=== PATIENT | female | born 1975 | race African-American/Black ===

== ENCOUNTER 2020-07-26 22:54 | Emergency (ER) | payer OTHER ==
[~2020-07-26] VITALS: Ht 162.6 cm; Wt 118.2 kg
[2020-07-26] MEDS ORDERED: CloNIDine HCL 0.1 MG TABLET PO ONE (23:30)
[2020-07-27] MEDS ORDERED: HydrALAZINE HCL 10 MG TABLET PO ONE (00:45)
[2020-07-27 01:56] VITALS: BP 211/139
== END 2020-07-27 02:01 | disposition home or self-care (01) ==
LOC: EMS 23:08
DX: I10 Essential (primary) hypertension (principal)
CPT/HCPCS: 99285; Z7502; Z7610

== ENCOUNTER 2021-09-09 01:51 | Inpatient (IN) | payer OTHER ==
[~2021-09-09] VITALS: Ht 170.2 cm; Wt 108.7 kg
[2021-09-09] MEDS ORDERED: ONDANSETRON HCL 4 MG/2 ML VIAL IVP ONE (02:15)
[2021-09-09] MEDS ORDERED: SODIUM CHLORIDE 0.9% 1,000 ML IV ONE (02:15)
[2021-09-09 02:47] LABS: BASOPHILS % (AUTO) 1.1 % (0.0-2.0); EOSINOPHILS % (AUTO) 1.5 % (1.0-6.0); HEMATOCRIT 43.7 % (36-46); HEMOGLOBIN 14.8 g/dL (12.0-16.0); LYMPHOCYTES # (AUTO) 2.6 K/uL (1.0-4.8); LYMPHOCYTES % (AUTO) 40.1 % (22.0-44.0); MEAN CORPUSCULAR HEMOGLOBIN 28.1 pg (26.0-34.0); MEAN CORPUSCULAR HGB CONC 33.9 G/dL (31.0-37.0); MEAN CORPUSCULAR VOLUME 83 fL (80-100); MONOCYTES # (AUTO) 0.6 K/uL (0.1-1.0); MONOCYTES % (AUTO) 9.4 % (2.0-9.0); NEUTROPHILS # (AUTO) 3.2 K/uL (1.8-7.7); NEUTROPHILS % (AUTO) 47.9 % (40.0-70.0); PLATELET COUNT (AUTO) 332 K/uL (150-450); RED BLOOD CELL COUNT(AUTO) 5.28 MIL/uL (4.00-5.20); RED CELL DISTRIBUTION WIDTH 13.9 % (11.5-14.5)
[2021-09-09 03:20] LABS: COVID AG,FIA SOURCE NASAL SWAB
[2021-09-09 03:23] LABS: ALANINE AMINOTRANSFERASE 44 U/L (12-78); ALBUMIN 4.3 g/dL (3.4-5.0); ALKALINE PHOSPHATASE 67 U/L (46-116); ANION GAP 13 mmol/L (8-16); ASPARTATE AMINOTRANSFERASE 30 U/L (15-37); BILIRUBIN,TOTAL 0.8 mg/dL (0.1-1.0); CALCIUM, TOTAL 9.7 mg/dL (8.8-10.5); CARBON DIOXIDE 30 mmol/L (22-29); CHLORIDE 93 mmol/L (98-107); CREATININE 1.18 mg/dL (0.60-1.30); GLUCOSE,RANDOM 107 mg/dL (70-110); HCG,QUANTITATIVE < 1 mIU/mL (0-6); LIPASE 84 U/L (73-393); SODIUM SERUM 136 mmol/L (136-145); TOTAL PROTEIN, SERUM 8.8 g/dL (6.4-8.2); UREA NITROGEN, BLOOD 7 mg/dL (7-18)
[2021-09-09 03:25] LABS: GLOMERULAR FILTR. RATE CALC 60 mL/min (>60)
[2021-09-09 03:27] LABS: POTASSIUM 2.5 mmol/L (3.5-5.1)
[2021-09-09] MEDS ORDERED: POTASSIUM CHLORIDE 20 MEQ ER TABLET PO ONE (03:30)
[2021-09-09 03:40] LABS: INFLUENZA TYPE A NEGATIVE FOR TYPE A (NEGATIVE); INFLUENZA TYPE B NEGATIVE FOR TYPE B (NEGATIVE)
[2021-09-09] MEDS: POTASSIUM CHL 10 MEQ/WATER 50 ML IV SCH ×2 (03:46→05:04)
[2021-09-09] MEDS ORDERED: MAGNESIUM SULFATE 2 GM/WATER 50 ML IV ONE (04:00)
[2021-09-09] MEDS ORDERED: ACETAMINOPHEN 325 MG TABLET PO PRN (04:00)
[2021-09-09] MEDS ORDERED: ONDANSETRON HCL 4 MG/2 ML VIAL IVP PRN (04:00)
[2021-09-09] MEDS ORDERED: POTASSIUM CHL 10 MEQ/WATER 50 ML IV PRN (04:00)
[2021-09-09 06:10] VITALS: BP 119/57
[2021-09-09] MEDS ORDERED: METF-446 PO (06:12)
[2021-09-09] MEDS ORDERED: HYDR25TA2 PO (06:13)
[2021-09-09] MEDS ORDERED: LOSA25TA41 PO (06:14)
[2021-09-09 07:52] VITALS: BP 123/76
[2021-09-09] MEDS: HEPARIN SODIUM,PORCINE 5,000 UNITS/ML VIAL SQ SCH ×3 (09:18→23:54)
[2021-09-09 10:26] VITALS: BP 137/87
[2021-09-09] MEDS ORDERED: POTASSIUM CHL 20 MEQ/0.9% NS 1,000 ML IV ONE (12:45)
[2021-09-09] MEDS ORDERED: EMPA25TA3 PO (12:46)
[2021-09-09] MEDS ORDERED: SLOWK8 PO (12:46)
[2021-09-09 12:47] LABS: ANION GAP 10 mmol/L (8-16); CALCIUM, TOTAL 9.4 mg/dL (8.8-10.5); CARBON DIOXIDE 31 mmol/L (22-29); CHLORIDE 97 mmol/L (98-107); CREATININE 1.13 mg/dL (0.60-1.30); GLUCOSE,RANDOM 103 mg/dL (70-110); POTASSIUM 3.2 mmol/L (3.5-5.1); SODIUM SERUM 138 mmol/L (136-145); UREA NITROGEN, BLOOD 7 mg/dL (7-18)
[2021-09-09 12:57] LABS: GLOMERULAR FILTR. RATE CALC > 60 mL/min (>60)
[2021-09-09] MEDS: POTASSIUM CHLORIDE 20 MEQ ER TABLET PO PRN (13:14)
[2021-09-09 15:09] VITALS: BP 127/81
[2021-09-09 20:11] LABS: APPEARANCE,URINE CLEAR (CLEAR); BILIRUBIN,URINE NEGATIVE (NEGATIVE); GLUCOSE, URINE (UA) >=1000 mg/dL (NEGATIVE); KETONES,URINE NEGATIVE (NEGATIVE); LEUKOCYTE ESTERASE ,URINE NEGATIVE (NEGATIVE); NITRATE,URINE NEGATIVE (NEGATIVE); OCCULT BLOOD,URINE NEGATIVE (NEGATIVE); PH,URINE 5.5 (5.0-8.0); PROTEIN,URINE NEGATIVE (NEGATIVE); SPECIFIC GRAVITIY, URINE 1.015 (1.003-1.030); UROBILINOGEN,URINE <=1.0 mg/dL (<=1.0)
[2021-09-09 20:28] VITALS: BP 114/64
[2021-09-09 20:32] LABS: BACTERIA,URINE None Seen /HPF (None Seen); HYALINE CASTS, URINE 0-2 /LPF (None Seen); RBC,URINE 0-2 /HPF (0-2); SQUAMOUS EPITHELIAL CELL,UR Many /LPF (None Seen); WBC,URINE 0-2 /HPF (0-5)
[2021-09-09] MEDS ORDERED: INSULIN LISPRO 100 UNITS/ML SQ PRN (22:45)
[2021-09-09] MEDS ORDERED: DEXTROSE 50%-WATER 25 GM/50 ML SYRINGE IVP PRN (22:45)
[2021-09-09 23:57] VITALS: BP 149/96
[2021-09-10 04:43] VITALS: BP 127/84
[2021-09-10 06:22] LABS: GLUCOMETER DEV NAME(LOC) 5N.3; GLUCOSE,POINT OF CARE 94 MG/DL (70-110)
[2021-09-10 06:30] LABS: ANION GAP 6 mmol/L (8-16); CARBON DIOXIDE 30 mmol/L (22-29); CHLORIDE 101 mmol/L (98-107); CREATININE 0.91 mg/dL (0.60-1.30); GLUCOSE,RANDOM 95 mg/dL (70-110); POTASSIUM 3.2 mmol/L (3.5-5.1); SODIUM SERUM 137 mmol/L (136-145); UREA NITROGEN, BLOOD 7 mg/dL (7-18)
[2021-09-10 07:10] LABS: GLOMERULAR FILTR. RATE CALC > 60 mL/min (>60)
[2021-09-10 07:37] VITALS: BP 112/66
[2021-09-10] MEDS: LOSARTAN POTASSIUM 25 MG TABLET PO SCH (07:41)
[2021-09-10] MEDS: HEPARIN SODIUM,PORCINE 5,000 UNITS/ML VIAL SQ SCH ×3 (07:42→23:56)
[2021-09-10] MEDS: POTASSIUM CHLORIDE 20 MEQ ER TABLET PO PRN ×2 (07:47→15:41)
[2021-09-10 11:47] VITALS: BP 130/86
[2021-09-10 12:35] LABS: MAGNESIUM 2.5 mg/dL (1.80-2.40); POTASSIUM 3.2 mmol/L (3.5-5.1)
[2021-09-10 15:06] LABS: GLUCOMETER DEV NAME(LOC) 5S.2B; GLUCOSE,POINT OF CARE 108 MG/DL (70-110)
[2021-09-10 16:05] VITALS: BP 133/86
[2021-09-10 19:31] VITALS: BP 114/67
[2021-09-10 22:01] LABS: GLUCOMETER DEV NAME(LOC) 5S.2B; GLUCOSE,POINT OF CARE 86 MG/DL (70-110)
[2021-09-10 23:56] VITALS: BP 165/100
[2021-09-11] MEDS ORDERED: MELATONIN 3 MG TABLET PO PRN
[2021-09-11 04:29] VITALS: BP 117/69
[2021-09-11 06:31] LABS: GLUCOMETER DEV NAME(LOC) 5S.1B; GLUCOSE,POINT OF CARE 63 MG/DL (70-110)
[2021-09-11 06:58] LABS: ANION GAP 8 mmol/L (8-16); CALCIUM, TOTAL 9.3 mg/dL (8.8-10.5); CARBON DIOXIDE 28 mmol/L (22-29); CHLORIDE 103 mmol/L (98-107); CREATININE 0.83 mg/dL (0.60-1.30); GLUCOSE,RANDOM 91 mg/dL (70-110); POTASSIUM 3.5 mmol/L (3.5-5.1); SODIUM SERUM 139 mmol/L (136-145); UREA NITROGEN, BLOOD 5 mg/dL (7-18)
[2021-09-11 07:00] LABS: GLOMERULAR FILTR. RATE CALC > 60 mL/min (>60)
[2021-09-11 07:34] VITALS: BP 126/82
[2021-09-11 07:51] LABS: GLUCOMETER DEV NAME(LOC) 5S.2B; GLUCOSE,POINT OF CARE 91 MG/DL (70-110)
[2021-09-11] MEDS: HEPARIN SODIUM,PORCINE 5,000 UNITS/ML VIAL SQ SCH (08:00)
[2021-09-11] MEDS: LOSARTAN POTASSIUM 25 MG TABLET PO SCH (08:26)
[2021-09-11 11:09] VITALS: BP 130/76
[2021-09-11] MEDS ORDERED: SIME125T3 PO (11:10)
[2021-09-11] MEDS ORDERED: ONDA-104 PO (11:10)
== END 2021-09-11 11:30 | disposition home or self-care (01) | DRG 249 ==
LOC: EMS 02:23 → 5S 04:06
PROVIDERS: ADMIT Internal Medicine; ATTEND Internal Medicine
DX: A08.4 Viral intestinal infection, unspecified (principal); E11.9 Type 2 diabetes mellitus without complications; E87.6 Hypokalemia; I10 Essential (primary) hypertension; E66.01 Morbid (severe) obesity due to excess calories; I45.9 Conduction disorder, unspecified; Z20.822 Contact with and (suspected) exposure to COVID-19; Z82.49 Family history of ischemic heart disease and other diseases of the circulatory system; Z79.899 Other long term (current) drug therapy; Z79.84 Long term (current) use of oral hypoglycemic drugs; Z68.37 Body mass index [BMI] 37.0-37.9, adult
CPT/HCPCS: 80048; 80053; 81001; 81003; 82962; 83690; 83735; 84132; 84702; 85025; 87804; 93005; 99285; J1644; J2405; J3475; J3480; J7030